=== PATIENT | female | born 1955 | race Caucasian/White ===

== ENCOUNTER 2017-04-30 15:39 | Inpatient (IN) | payer OTHER ==
[~2017-04-30] VITALS: Ht 213.4 cm; Wt 5.0 kg
[~2017-04-30 15:39] MED LIST: PAXIL20 MG
== END 2017-05-28 18:39 | disposition designated cancer center or children's hospital (05) | DRG 202 ==
LOC: MEDI 15:39 → MEDJ 05-01 15:12 → SURH 05-17 01:54
PROC: 0CJY8ZZ Inspection of Mouth and Throat, Via Natural or Artificial Opening Endoscopic (ICD-10-PCS; principal; 2017-04-30)
PROC: 4A033R1 Measurement of Arterial Saturation, Peripheral, Percutaneous Approach (ICD-10-PCS; 2017-04-30)
PROC: 3E0F7GC Introduction of Other Therapeutic Substance into Respiratory Tract, Via Natural or Artificial Opening (ICD-10-PCS; 2017-04-30)
PROC: BB24ZZZ Computerized Tomography (CT Scan) of Bilateral Lungs (ICD-10-PCS; 2017-04-30)
PROC: 8E0ZXY6 Isolation (ICD-10-PCS; 2017-05-01)
PROC: 02HV33Z Insertion of Infusion Device into Superior Vena Cava, Percutaneous Approach (ICD-10-PCS; 2017-05-03)
PROC: 05H533Z Insertion of Infusion Device into Right Subclavian Vein, Percutaneous Approach (ICD-10-PCS; 2017-05-09)
PROC: BW21Y0Z Computerized Tomography (CT Scan) of Abdomen and Pelvis using Other Contrast, Unenhanced and Enhanced (ICD-10-PCS; 2017-05-14)
PROC: BB24ZZZ Computerized Tomography (CT Scan) of Bilateral Lungs (ICD-10-PCS; 2017-05-20)
PROC: 30233N1 Transfusion of Nonautologous Red Blood Cells into Peripheral Vein, Percutaneous Approach (ICD-10-PCS; 2017-05-23)
DX: J45.41 Moderate persistent asthma with (acute) exacerbation (principal); J15.212 Pneumonia due to Methicillin resistant Staphylococcus aureus; J15.6 Pneumonia due to other Gram-negative bacteria; A31.0 Pulmonary mycobacterial infection; J44.1 Chronic obstructive pulmonary disease with (acute) exacerbation; H70.003 Acute mastoiditis without complications, bilateral; B37.0 Candidal stomatitis; R09.02 Hypoxemia; J01.40 Acute pansinusitis, unspecified; K29.00 Acute gastritis without bleeding; Z22.322 Carrier or suspected carrier of Methicillin resistant Staphylococcus aureus; K62.89 Other specified diseases of anus and rectum; B96.5 Pseudomonas (aeruginosa) (mallei) (pseudomallei) as the cause of diseases classified elsewhere; D64.89 Other specified anemias